=== PATIENT | male | born 1945 | race Caucasian/White ===

== ENCOUNTER 2018-04-07 11:06 | Inpatient (IN) | payer OTHER, BC ==
[~2018-04-07] VITALS: Ht 175.3 cm; Wt 102.5 kg
--- NOTE | ~2018-04-07 | HC ---
[facility] [place] [address] CONSULTATION Name: LUIS NDIAYE V [facility]: [facility] M.R.#: [id number] Admission: 04/07/18 Attend Phys: Kash Chan MD Discharge: Date of : 47 Report #: [id number] THIS REPORT FOR: //name// CC: Kash López DATE OF SERVICE: 04/10/2018 ATTENDING PHYSICIAN: Dr. Chan. REASON FOR EVALUATION: Empyema, left chest. HISTORY OF PRESENT ILLNESS: Chart reviewed, patient examined. This is a 73-year-old with extensive medical history, has underlying COPD, history of prostate cancer who developed pain, discomfort on the left side. He was eventually evaluated, was felt to have respiratory tract infection, had adverse drug effects relating to the antibiotics with emesis. Had a chest x-ray, which suggested pneumonitis in the left side and developed an effusion that was attempted. Diagnostic thoracentesis was unsuccessful, so did undergo left thoracotomy and decortication of the left lower lung. Cultures in progress thus far has been no growth. Empirically started on broad spectrum therapy with vancomycin, piperacillin and tazobactam. He does have chest tubes in place. He describes moderate pain at this point. ALLERGIES: None known. MEDICATIONS: Vancomycin, metoprolol, p.r.n. antiemetics, Zosyn, clonidine, ipratropium and albuterol inhaler, budesonide, sliding scale insulin. PAST MEDICAL HISTORY: Includes the above noted COPD, hypertension, prostate cancer. SOCIAL HISTORY: Former smoker. FAMILY HISTORY: Noncontributory. REVIEW OF SYSTEMS: As above. PHYSICAL EXAMINATION: GENERAL: He appears tenuous. He is generally lucid, moderate distress. He is sitting up in the chair, chronically ill appearing, somewhat undernourished. VITAL SIGNS: Temperature 98.8, pulse 67, respirations 18, blood pressure 113/57. SKIN: Warm, dry. HEENT: Nasal cannula oxygen in place. NECK: Supple. [facility] [address] [place] [address] CONSULTATION Name: LUIS NDIAYE V Room #: [address] [place] [address] [place] ..#: [id number] Admission: 04/07/18 Attend Phys: Kash Chan MD Discharge: Date of : 47 Report #: [id number] LUNGS: Diminished breath sounds on the left side, got chest tube in place. He is tender. HEART: Regular. I do not appreciate murmur. ABDOMEN: Soft. There are no peritoneal signs. GENITOURINARY: Deferred. RECTAL: Deferred. LABORATORY DATA: His recent chest x-ray showed small pneumothorax, left basilar infiltrate and atelectasis. Electrolytes: Sodium 138, potassium 4.7, chloride 105, bicarbonate is 27, BUN and creatinine 39 and 1.2, glucose of 110. LFTs unremarkable. Albumin 1.8, total protein 5.8. CBC: White count of 8.7, H and H 10.8 and 28.9, platelets of 443. Blood cultures are sterile thus far. Pleural fluid showed rare WBC, many RBCs, no organisms seen. Cultures are unrevealing. ASSESSMENT: Empyema post-thoracotomy with decortication. We will continue empiric broad spectrum therapy. Await culture results, may well have a situation where nothing grows given the previous antibiotics. Responds clinically. Noted plans to keep the chest tubes at least 1 additional day with increased activity expectantly. <ELECTRONICALLY SIGNED> By: Newton Benson MD 04/11/18 0750 0702 1328 Newton Benson MD /nt
[2018-04-07] MEDS ORDERED: ETODOLAC500 MG PO (15:00)
[2018-04-07] MEDS ORDERED: CLONIDINE0.1 PO (15:00)
[2018-04-07] MEDS ORDERED: ATENOLOL 100MG100 MG PO (15:00)
[2018-04-07] MEDS ORDERED: NEURONTIN 300300 M1 PO (15:01)
[2018-04-07] MEDS ORDERED: COZAAR 50 MG TA50 M2 PO (15:01)
[2018-04-07] MEDS ORDERED: HYDROCODONE-AP1 EAC6 PO (15:01)
[2018-04-07 16:25] VITALS: BP 128/61
[2018-04-07 19:45] VITALS: BP 126/55
[2018-04-07 20:11] LABS: HEMATOCRIT 30.4 % (42.0-52.0); HEMOGLOBIN 9.9 gm/dL (14.0-18.0); MCH 29.4 pg (26.0-34.0); MCHC 32.6 g/dL (28.0-37.0); MCV 90.1 fL (80.0-100.0); PLATELET COUNT 490 thou/uL (150-400); RBC 3.37 mil/uL (4.50-6.00); RDW 13.5 % (10.5-14.5); WBC 15.4 thou/uL (4.0-11.0)
[2018-04-07 20:19] LABS: CALCIUM 9.2 mg/dL (8.5-10.1); CREATININE 1.8 mg/dL (0.7-1.3); POTASSIUM 4.6 mmol/L (3.5-5.1)
[2018-04-07 20:24] LABS: ALBUMIN 2.1 g/dL (3.4-5.0); TOTAL BILIRUBIN 0.6 mg/dL (<0.1-1.0)
[2018-04-07 20:26] LABS: APTT 26.6 Seconds (24.5-32.8); PROTIME 9.9 Seconds (9.3-11.4)
[2018-04-07 20:45] LABS: BE(vivo) 1.2 mmol/L (-2 to +3); HCO3 25.3 mmol/L (22.0-26.0); PO2 67.7 mmHg (80.0-100.0); pH 7.441 (7.360-7.450); sO2 94.2 % (92.0-98.0)
[2018-04-07 20:58] LABS: ABSOLUTE NEUTROPHILS 13.9 thou/uL (1.4-8.2); METAMYELOCYTES 1 %; POLYCHROMASIA 1+
[2018-04-07 21:31] LABS: URINE BILIRUBIN NEGATIVE (Negative); URINE BLOOD NEGATIVE (Negative); URINE CLARITY CLEAR; URINE COLOR YELLOW; URINE GLUCOSE-RANDOM* NEGATIVE (Negative); URINE KETONES NEGATIVE (Negative); URINE LEUKOCYTES-REFLEX NEGATIVE (Negative); URINE NITRITE-REFLEX NEGATIVE (Negative); URINE PROTEIN (DIPSTICK) NEGATIVE (Negative); URINE SPECIFIC GRAVITY 1.015 (1.005-1.035); URINE UROBILINOGEN 0.2 E.U./dl (0.2-1.0)
[2018-04-07 23:48] VITALS: BP 123/60
[2018-04-08 00:08] VITALS: BP 123/60
[2018-04-08 04:00] LABS: CREATININE 1.5 mg/dL (0.7-1.3); MAGNESIUM 2.7 mg/dL (1.8-2.4); POTASSIUM 4.6 mmol/L (3.5-5.1); TOTAL BILIRUBIN 0.6 mg/dL (<0.1-1.0); TOTAL PROTEIN 6.5 g/dL (6.4-8.2)
[2018-04-08 04:19] LABS: ABSOLUTE NEUTROPHILS 11.3 thou/uL (1.4-8.2); BASOPHILS 0.1 % (0.0-2.0); HEMATOCRIT 27.9 % (42.0-52.0); HEMOGLOBIN 9.3 gm/dL (14.0-18.0); LYMPHOCYTES 3.4 % (24.0-44.0); MCH 30.3 pg (26.0-34.0); MCHC 33.4 g/dL (28.0-37.0); MCV 90.7 fL (80.0-100.0); MONOCYTES 6.6 % (1.0-8.0); PLATELET COUNT 465 thou/uL (150-400); POLYS 89.9 % (36.0-66.0); RBC 3.07 mil/uL (4.50-6.00); RDW 13.3 % (10.5-14.5); WBC 12.6 thou/uL (4.0-11.0)
[2018-04-08 04:32] VITALS: BP 131/64
[2018-04-08 08:19] VITALS: BP 132/55
[2018-04-08 15:39] LABS: CALCIUM 8.6 mg/dL (8.5-10.1); CREATININE 1.4 mg/dL (0.7-1.3); MAGNESIUM 2.5 mg/dL (1.8-2.4); POTASSIUM 5.1 mmol/L (3.5-5.1)
[2018-04-09 10:52] LABS: HEMATOCRIT 28.9 % (42.0-52.0); HEMOGLOBIN 9.8 gm/dL (14.0-18.0); MCH 30.4 pg (26.0-34.0); MCV 89.4 fL (80.0-100.0); RBC 3.23 mil/uL (4.50-6.00); RDW 13.3 % (10.5-14.5); WBC 8.7 thou/uL (4.0-11.0)
[2018-04-09 11:12] LABS: ALBUMIN 1.8 g/dL (3.4-5.0); CALCIUM 8.6 mg/dL (8.5-10.1); CREATININE 1.2 mg/dL (0.7-1.3); MAGNESIUM 2.4 mg/dL (1.8-2.4); POTASSIUM 4.7 mmol/L (3.5-5.1); TOTAL BILIRUBIN 0.5 mg/dL (<0.1-1.0); TOTAL PROTEIN 5.8 g/dL (6.4-8.2)
[2018-04-09 16:04] VITALS: BP 100/63
[2018-04-09 17:13] VITALS: BP 98/53
[2018-04-09 18:34] VITALS: BP 95/52
[2018-04-09 23:51] VITALS: BP 119/55
[2018-04-10 03:59] VITALS: BP 113/57
[2018-04-10 08:15] VITALS: BP 105/49
[2018-04-10 12:30] VITALS: BP 118/54
[2018-04-10 16:07] LABS: ALBUMIN 1.8 g/dL (3.4-5.0); CALCIUM 8.4 mg/dL (8.5-10.1); CREATININE 1.1 mg/dL (0.7-1.3); POTASSIUM 4.4 mmol/L (3.5-5.1); TOTAL BILIRUBIN 0.5 mg/dL (<0.1-1.0); TOTAL PROTEIN 5.8 g/dL (6.4-8.2)
[2018-04-10 17:23] VITALS: BP 121/56
[2018-04-10 17:25] VITALS: BP 121/56
[2018-04-10 19:50] VITALS: BP 134/58
[2018-04-11 04:27] VITALS: BP 126/53
[2018-04-11 04:29] LABS: HEMATOCRIT 27.3 % (42.0-52.0); HEMOGLOBIN 9.1 gm/dL (14.0-18.0); MCH 29.8 pg (26.0-34.0); MCHC 33.3 g/dL (28.0-37.0); MCV 89.4 fL (80.0-100.0); RBC 3.05 mil/uL (4.50-6.00); RDW 13.3 % (10.5-14.5); WBC 11.9 thou/uL (4.0-11.0)
[2018-04-11 04:40] LABS: CALCIUM 8.4 mg/dL (8.5-10.1); CREATININE 0.9 mg/dL (0.7-1.3); POTASSIUM 4.3 mmol/L (3.5-5.1)
[2018-04-11 08:14] VITALS: BP 120/52
[2018-04-11 11:57] LABS: ALBUMIN 1.9 g/dL (3.4-5.0); DIRECT BILIRUBIN 0.3 mg/dL (<0.1-0.3); TOTAL BILIRUBIN 0.7 mg/dL (<0.1-1.0); TOTAL PROTEIN 5.8 g/dL (6.4-8.2)
[2018-04-11 12:38] VITALS: BP 138/73
[2018-04-11 15:54] VITALS: BP 143/59
[2018-04-11 19:11] VITALS: BP 133/61
[2018-04-12 04:16] VITALS: BP 133/66
[2018-04-12 08:05] VITALS: BP 145/52
[2018-04-12 11:25] LABS: HEMATOCRIT 24.3 % (42.0-52.0); HEMOGLOBIN 8.1 gm/dL (14.0-18.0); MCH 30.1 pg (26.0-34.0); MCHC 33.5 g/dL (28.0-37.0); MCV 89.8 fL (80.0-100.0); RBC 2.7 mil/uL (4.50-6.00); RDW 13.2 % (10.5-14.5); WBC 11.9 thou/uL (4.0-11.0)
[2018-04-12 11:38] LABS: ALBUMIN 1.9 g/dL (3.4-5.0); CALCIUM 8.5 mg/dL (8.5-10.1); CREATININE 0.8 mg/dL (0.7-1.3); MAGNESIUM 1.8 mg/dL (1.8-2.4); TOTAL BILIRUBIN 0.6 mg/dL (<0.1-1.0)
[2018-04-12 11:40] VITALS: BP 130/55
[2018-04-12 15:47] VITALS: BP 148/63
[2018-04-12 19:45] VITALS: BP 158/65
[2018-04-13 04:12] LABS: CALCIUM 8.3 mg/dL (8.5-10.1); CREATININE 0.8 mg/dL (0.7-1.3); MAGNESIUM 1.7 mg/dL (1.8-2.4); POTASSIUM 3.9 mmol/L (3.5-5.1)
[2018-04-13 04:23] VITALS: BP 136/74
[2018-04-13 04:27] LABS: HEMATOCRIT 24.2 % (42.0-52.0); HEMOGLOBIN 8.2 gm/dL (14.0-18.0); MCH 30.3 pg (26.0-34.0); MCHC 34.1 g/dL (28.0-37.0); MCV 88.8 fL (80.0-100.0); RBC 2.72 mil/uL (4.50-6.00); RDW 13.2 % (10.5-14.5); WBC 10.7 thou/uL (4.0-11.0)
[2018-04-13 07:50] VITALS: BP 127/57
[2018-04-13 12:39] VITALS: BP 143/61
[2018-04-13 16:04] VITALS: BP 154/71
[2018-04-13 19:45] VITALS: BP 149/70
[2018-04-14 03:01] LABS: HEMATOCRIT 25.1 % (42.0-52.0); HEMOGLOBIN 8.4 gm/dL (14.0-18.0); MCH 29.9 pg (26.0-34.0); MCHC 33.5 g/dL (28.0-37.0); MCV 89.3 fL (80.0-100.0); RBC 2.81 mil/uL (4.50-6.00); RDW 13.1 % (10.5-14.5); WBC 11.3 thou/uL (4.0-11.0)
[2018-04-14 03:19] LABS: CALCIUM 8.8 mg/dL (8.5-10.1); CREATININE 0.8 mg/dL (0.7-1.3); MAGNESIUM 1.7 mg/dL (1.8-2.4); POTASSIUM 3.9 mmol/L (3.5-5.1)
[2018-04-14 04:37] VITALS: BP 153/68
[2018-04-14 07:44] VITALS: BP 155/72
[2018-04-14] MEDS ORDERED: DUONEB 2.5-0.5 M3 ML INH (14:29)
[2018-04-14] MEDS ORDERED: PULMICORT0.5 MG/21 INH (14:29)
[2018-04-14] MEDS ORDERED: LOPRESSOR25 PO (14:29)
[2018-04-14] MEDS ORDERED: MUCINEX600 MG PO (14:30)
== END 2018-04-14 15:30 | DRG 853 ==
LOC: 2N 11:06 → TBA 04-08 12:00 → ICU 04-08 16:49 → 2N 04-09 18:26 → ENTRNSPT 04-14 15:11 → EDTRNSPTSTS 04-14 15:13 → 2N 04-14 15:30
PROVIDERS: Internal Medicine; Internal Medicine Pulmonary Disease; Nurse Practitioner; Thoracic Surgery (Cardiothoracic Vascular Surgery)
PROC: 0BNJ0ZZ Release Left Lower Lung Lobe, Open Approach (ICD-10-PCS; principal; 2018-04-08)
DX: A41.9 Sepsis, unspecified organism (principal); J18.9 Pneumonia, unspecified organism; E43 Unspecified severe protein-calorie malnutrition; J86.9 Pyothorax without fistula; J96.01 Acute respiratory failure with hypoxia; N17.9 Acute kidney failure, unspecified; J90 Pleural effusion, not elsewhere classified; E87.2 Acidosis; J44.9 Chronic obstructive pulmonary disease, unspecified; I25.10 Atherosclerotic heart disease of native coronary artery without angina pectoris; R73.9 Hyperglycemia, unspecified; N18.3 Chronic kidney disease, stage 3 (moderate); K80.20 Calculus of gallbladder without cholecystitis without obstruction; B95.4 Other streptococcus as the cause of diseases classified elsewhere; D64.9 Anemia, unspecified; I12.9 Hypertensive chronic kidney disease with stage 1 through stage 4 chronic kidney disease, or unspecified chronic kidney disease; D69.6 Thrombocytopenia, unspecified; Z85.46 Personal history of malignant neoplasm of prostate; Z68.33 Body mass index [BMI] 33.0-33.9, adult; Z87.891 Personal history of nicotine dependence; Z92.3 Personal history of irradiation; Z79.51 Long term (current) use of inhaled steroids; Z79.899 Other long term (current) drug therapy; Z83.3 Family history of diabetes mellitus
CPT/HCPCS: 10078; 10081; 10797; 47405; 50010; 50101; 50386; 50417; 50455; 50497; 51301; 51717; 56524; 56525; 56526; 56527; 56528; 62110; 62900; 65020; 65040; 65105; 65129; 70005

== ENCOUNTER 2018-04-14 11:27 | Inpatient (IN) | payer OTHER, BC ==
[~2018-04-14] VITALS: Ht 175.3 cm; Wt 95.5 kg
--- NOTE | ~2018-04-14 | PLAN ---
[facility] [place] [address] REHAB UNIT PLAN OF CARE Name: LUIS NDIAYE V Room #: 510-P [facility] IN M.R.#: [id number] Admission: 04/14/18 Attend Phys: Raúl Tomlinson MD Discharge: 04/22/18 Date of : 47 Report #: [id number] THIS REPORT FOR: //name// CC: Jorge Tomlinson DATE OF SERVICE: 04/16/2018 PROGRESS/OVERALL PLAN OF CARE The patient is seen back today in followup. He is in no distress. Last recorded temperature 97.4, pulse 95, respirations 18, blood pressure 133/79. No focal calf swelling. He does have some blistered areas of his foot dorsum. There is no calf swelling. There is no erythema at the base of the blisters. Lower extremity edema appears improved. Functionally, he is transferring with min assist and gait is min assist 150 feet with a front-wheeled walker. In occupational therapy, lower body dressing is max assist. ASSESSMENT: 1. Medical complexity with generalized debilitation. 2. Empyema, status post thoracotomy with decortication of the left lower lobe on 04/08/2018. 3. Acute respiratory failure with a community-acquired pneumonia. 4. Acute renal failure, resolved. 5. Anemia. 6. Chronic obstructive pulmonary disease. PLAN: The overall plan of care is based on the preadmission screen, post-admission physician evaluation and information garnered from therapy assessments. 1. Estimated length of stay is around 1-2 weeks pending progress. 2. Medical prognosis is reasonably good. 3. Anticipated interventions includes the interdisciplinary acute inpatient rehabilitation program with goal of maximizing the patient's functional independence, so that he can hopefully return back to his prior living situation. PT, OT, rehab nursing to assist regarding medication management, skin care prophylaxis, bowel and bladder issues and nursing education. Case management is involved as well as the rest of the interdisciplinary acute rehabilitation team and the institutional nutrition consultant physicians. 4. Anticipated functional outcomes would be for the patient to become modified independent with transfers, mobility and ADLs, so that he can hopefully return back to his prior living situation. Goal would to be independent at least at the walker level. 5. Discharge destination is back to the home setting where the patient lives with his . 6. Expected therapy by discipline includes PT and OT 1 and 1-1/2 hours per day, [place] [address] REHAB UNIT PLAN OF CARE Name: LUIS NDIAYE Roc Room #: 510-P [facility] IN ..#: [id number] Admission: 04/14/18 Attend Phys: Raúl Tomlinson MD Discharge: 04/22/18 Date of : 47 Report #: [id number] each five days a week throughout the duration of the acute inpatient rehabilitation stay. <ELECTRONICALLY SIGNED> By: Raúl Tomlinson MD 04/30/18 1515 0750 0830 Raúl Tomlinson MD /ELKE
--- NOTE | ~2018-04-14 | H ---
[facility] [place] [address] HISTORY AND PHYSICAL Name: LUIS NDIAYE V Room #: 510-P [facility] IN .R.#: [id number] Admission: 04/14/18 Attend Phys: Raúl Tomlinson MD Discharge: 04/22/18 Date of : 47 Report #: [id number] THIS REPORT FOR: //name// CC: Jorge Tomlinson DATE OF SERVICE: 04/14/2018 HISTORY OF PRESENT ILLNESS: This is a pleasant 73-year-old gentleman who has now been admitted to inpatient rehabilitation after a hospital stay for large empyema and ultimately underwent thoracotomy with decortication of the left lower lobe. On 04/08/2018, he was seen by Cardiothoracic Surgery, Pulmonology and Infectious Disease. He remains on antibiotics. He continues with dressing changes to the left chest wall. Due to his weakness and deconditioning, he has been admitted to inpatient rehab for further strengthening therapies and to improve his functional mobility. Today, he reports good pain control. He does have some increasing edema in his lower extremities for which he now has blisters on both tops of his feet. He has some shortness of air with activity and a productive cough at times. His appetite is slowly improving. He is sleeping better and he is having regular bowel movement. PAST MEDICAL HISTORY: Prostate cancer, stage I; hypertension; COPD. HABITS: He quit smoking 4 years ago. He drinks beer in the evening at times. Denies illicit drug use. SOCIAL HISTORY: He is a full code. He lives in a 1 story home with his . There is 1 entry stair, zero stairs inside. He utilized no assistive device premorbidly. He still drives. 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 ALLERGIES: No known drug allergies. CURRENT MEDICATIONS: Lactobacillus 1 capsule daily, Lasix 40 mg daily IV, losartan 50 mg daily by mouth, DuoNeb as needed, ampicillin 3 grams every 8 hours IV, metoprolol 25 mg twice a day by mouth, gabapentin 300 mg twice a day by mouth, clonidine 0.1 mg twice a day by mouth, budesonide 0.5 mg b.i.d., inhaled DuoNeb q.6h. scheduled, Zofran 4 mg q.6h. IV p.r.n., Axtell 5/325 q.4h. by mouth p.r.n., senna 1 tablet daily by mouth p.r.n., milk of mag 10 mL daily by mouth p.r.n., Colace 100 mg twice a day by mouth p.r.n., bisacodyl 10 mg rectally daily p.r.n. REVIEW OF SYSTEMS: Remainder of his 12-point review of systems is negative except as listed in HPI. [address] [address] HISTORY AND PHYSICAL Name: LUIS NDIAYE V Room #: 510-P [facility] IN M.R.#: [id number] Admission: 04/14/18 Attend Phys: Raúl Tomlinson MD Discharge: 04/22/18 Date of : 46 Report #: [id number] PHYSICAL EXAMINATION: VITAL SIGNS: Blood pressure 122/71, pulse 79, temperature 97.9, respirations 20. GENERAL: He is awake. He is alert. He is oriented x 4. He appears in no acute distress. HEENT: Normocephalic. EOMs are intact. CHEST: Lungs are diminished in the left lower lobe, otherwise clear. No crackle, no wheeze. CARDIAC: Regular rate and rhythm, S1, S2. ABDOMEN: Bowel sounds are positive, soft, nontender, nondistended. GENITOURINARY: Deferred. EXTREMITIES: 2+ lower extremity edema from knees down to toes. He has 2-3 large fluid-filled blisters on the dorsal portion of the foot. No tenderness. Negative Homans sign. Functional range of motion intact bilateral upper and lower extremities. Strength grossly 4/5. NEUROLOGIC: Cranial nerves 2-12 grossly intact. No motor or sensory deficits. MUSCULOSKELETAL: He is contact guard assist for sit to stand. He is ambulating up to 280 feet with a front-wheel walker, supervision for toilet transfers, supervision for grooming. He is max assist for dressing in the lower extremities. SKIN: He has surgical incision to posterior chest, clean, dry and intact and as mentioned above, blisters to his feet. LABORATORY DATA: On 04/15/2018, sodium 138, potassium 3.8, BUN 8, creatinine 0.8, glucose 109, calcium 8.4, mag 1.7. WBC 7.7, hemoglobin 8, hematocrit 23.3, platelets 502. ASSESSMENT: 1. Medical complexity with general debilitation. 2. Empyema, status post thoracotomy with decortication of left lower lobe on 04/08/2018. 3. Acute respiratory failure and community-acquired pneumonia. 4. Acute renal failure, resolved. 5. Anemia. 6. Chronic obstructive pulmonary disease. 7. Hypomagnesemia. 8. Hypertension. 9. Elevated liver function tests, possible liver stress or sludge has improved. PLAN: The patient has been admitted to inpatient rehab for physical and occupational therapies to increase his functional mobility with a goal to return back to the home setting with his . He will continue to have the [address] [place] [address] HISTORY AND PHYSICAL Name: LUIS NDIAYE V Room #: 510-P [facility] IN M.R.#: [id number] Admission: 04/14/18 Attend Phys: Raúl Tomlinson MD Discharge: 04/22/18 Date of : 46 Report #: [id number] consultants follow for any acute issues that may arise. He will have a team conference on Thursday for future discharge planning. <ELECTRONICALLY SIGNED> By: TRACEY Melissa 04/29/18 1406 1013 1101 TRACEY Melissa /nt
--- NOTE | ~2018-04-14 | H ---
[facility] [address] HISTORY AND PHYSICAL Name: LUIS NDIAYE V Room #: 510-P [facility] IN M.R.#: [id number] Admission: 04/14/18 Attend Phys: Raúl Tomlinson MD Discharge: 04/22/18 Date of : 47 Report #: [id number] THIS REPORT FOR: //name// CC: Jorge Tomlinson DATE OF SERVICE: 04/14/2018 HISTORY AND PHYSICAL, ADDENDUM/POST-ADMISSION PHYSICIAN EVALUATION HISTORY OF PRESENT ILLNESS: The patient is a 73-year-old white male, now admitted for acute in-hospital inpatient rehabilitation. Please see the dictation from Radha Barnett, nurse practitioner. He originally was admitted to [facility] on 04/07/2018 with shortness of breath, cough, and edema. He was seen by Cardiothoracic Surgery for pleural effusion, loculation, and underwent thoracotomy with decortication of the left lower lobe. He was followed by multiple [facility] consultant physicians with Pulmonary Medicine involved, Infectious Disease, dressing changes to the left chest wall. He has some increasing edema of his lower extremities. He has been admitted now for acute in-hospital inpatient rehabilitation. PAST MEDICAL HISTORY: Please see the above-noted dictation. HABITS: Please see the above-noted dictation. SOCIAL HISTORY: Please see the above-noted dictation. ALLERGIES: Please see the above-noted dictation. MEDICATIONS: Please see the above-noted dictation. REVIEW OF SYSTEMS: Please see the above-noted dictation. PHYSICAL EXAMINATION: GENERAL: He was seen earlier. He was alert, no obvious distress. VITAL SIGNS: Afebrile. Vital signs were stable. CHEST: Some decreased breath sounds over the left lower lobe. CARDIOVASCULAR: Regular rate and rhythm. ABDOMEN: Bowel sounds positive, nontender. EXTREMITIES: He does have 2+ lower extremity edema. There are some blisters noted on the dorsal portion of the foot. His strength is a grade 4-/5. Functionally, he has been needing contact guard for sit to stand and is ambulating short distances with a front-wheeled walker. ASSESSMENT: 1. Medical complexity with generalized debilitation. [facility] [address] [place] [address] HISTORY AND PHYSICAL Name: LUIS NDIAYE V Room #: 510-P [facility] IN M.R.#: [id number] Admission: 04/14/18 Attend Phys: Raúl Tomlinson MD Discharge: 04/22/18 Date of : 47 Report #: [id number] 2. Empyema status post thoracotomy with decortication of the left lower lobe on 04/08/2018. 3. Acute respiratory failure with community-acquired pneumonia. 4. Acute renal failure, resolved. 5. Anemia. 6. Chronic obstructive pulmonary disease. Otherwise, see the problem list as per the noted dictation. PLAN: The patient is involved and has been admitted for acute in-hospital inpatient rehabilitation. From a postadmission physician evaluation perspective, there are no relevant changes since the preadmission screening. Please see the above review of prior and current medical and functional conditions and comorbidities. Please see the patient's previous and current functional status. As far as risk of complications, the patient has multiple medical comorbidities as noted above. The initial plan of care involves the interdisciplinary acute inpatient rehabilitation program with goal of maximizing the patient's functional independence so that he can hopefully return back to his prior living situation. Measurable functional goals would be for the patient to become modified independent with transfers, mobility and ADLs so that he can return back to the home setting. Prognosis is reasonably good with estimated length of stay probably at least 10 days to 2 weeks pending progress. Potential barriers would include his multiple medical comorbidities and decreased functional status. The patient meets diagnostic criteria for an acute in-hospital inpatient rehabilitation stay. He does meet the medical necessity criteria. The hospitalist service has been contacted regarding the lower extremity edema and blistering and will defer further input as per them. No consideration for increasing diuresis. The patient does have the tolerance for an acute in-hospital inpatient rehabilitation therapy program and has appropriate discharge goals back to the home setting. ADDENDUM: From a review of systems perspective, there was no chest pain, no obvious shortness of breath, no abdominal discomfort. <ELECTRONICALLY SIGNED> By: Raúl Tomlinson MD 04/30/18 1513 1240 1310 Raúl Tomlinson MD /nt
--- NOTE | ~2018-04-14 | HC ---
[facility] [place] [address] CONSULTATION Name: LUIS NDIAYE V Room #: 510-P [facility] IN M.R.#: [id number] Admission: 04/14/18 Attend Phys: aRúl Tomlinson MD Discharge: Date of : 47 Report #: [id number] THIS REPORT FOR: //name// CC: Jorge Tomlinson DATE OF SERVICE: 04/17/2018 ATTENDING PHYSICIAN: Raúl Tomlinson MD. ORDER DEPARTMENT SUPERVISOR: William Downey, PhD. CLINICAL PRESENTATION: The patient is a 73-year-old male admitted to the Rehab Unit at [facility] for comprehensive inpatient rehabilitation program to improve functional mobility, activities of daily living and self-care and mental status secondary to deficits from medical complexity and general debility. The patient came in to the hospital after experiencing severe pain on the left side of his body. He had several days of unexplained bloody cough and general malaise and had several attempts at medical evaluations to identify the problem. Eventually, his condition deteriorated to the extent of requiring hospitalization. He was diagnosed with a large empyema and underwent a thoracotomy with decortication of the left lower lobe. His diagnoses include acute respiratory failure and community-acquired pneumonia; acute renal failure, resolved; anemia; COPD; hypomagnesemia; hypertension; and elevated liver function test. A complete description of his medical condition and history can be found in his medical record. Neuropsychological consultation was requested to provide assistance in the assessment of cognitive and emotional status and to provide recommendations and services. Prior to this most recent admission and deterioration in his condition, he was living independently with his in their home. The patient has an 11th grade education and his employment was at a [employer] company for about 33 years. 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 He has one child and 6 grandchildren. There is no prior history of treatment for anxiety or depression. The patient does have daily use of alcohol at approximately 2-3 cans daily. No prior incidence of DUI, loss of consciousness from drinking or concern about alcohol abuse is described. TECHNIQUES UTILIZED: Clinical interview, review of medical records, staff consultation and behavioral observation, mini mental status exam 2 standard version and clock drawing. EXAMINATION FINDINGS: The patient was alert and cooperative with the assessment. He accurately described events surrounding his admission. There [address] [address] CONSULTATION Name: LUIS NDIAYE V Room #: 510-P [facility] IN M.R.#: [id number] Admission: 04/14/18 Attend Phys: Raúl Tomlinson MD Discharge: Date of : 46 Report #: [id number] is no evidence of aphasia or report of auditory or visual hallucinations. He does not report subjective anxiety or depression and indicates feeling optimistic and positive about his overall condition and recovery. He denies difficulty with sleep, appetite, or memory. His performance on the MMSE 2 brief version is within normal limits with a raw score of 14/16. He was 3/3 for initial registration, 5/5 for time, 4/[address] and 2/3 for immediate recall of 3 items after a brief time delay and distraction. His performance on the MMSE 2 standard version is within normal limits with a raw score of 28/30. He was 5/5 for serial 7's. Naming, repetition, comprehension, reading, writing and copying a simple geometric design are all within normal limits. Clock drawing was within normal limits. DIAGNOSTIC IMPRESSION: The patient's cognitive ability appears well maintained at this time. An assessment for mild neurocognitive disorder was indicated given his issues of respitory distress. He reports that his mood is optimistic and positive, however, mild anxiety is suggested. RECOMMENDATIONS: Continued involvement in his physical therapy program will improve overall adjustment and feelings of well-being and self-confidence as his endurance improves. A mild degree of anxiety in regard to the interference of his medical condition with ability to pursue work and recreation is suggested. Thank you very much for allowing me to provide the consultation on this patient. <ELECTRONICALLY SIGNED> By: William Downey, PhD 04/18/18 1441 1543 2058 William Downey, PhD /nt
[~2018-04-14 11:27] MED LIST: ATENOLOL 100MG100 MG PO; CLONIDINE0.1 PO; COZAAR 50 MG TA50 M2 PO; ETODOLAC500 MG PO; HYDROCODONE-AP1 EAC6 PO; NEURONTIN 300300 M1 PO
[2018-04-14] MEDS ORDERED: LOPRESSOR25 PO (14:29)
[2018-04-14] MEDS ORDERED: PULMICORT0.5 MG/21 INH (14:29)
[2018-04-14] MEDS ORDERED: DUONEB 2.5-0.5 M3 ML INH (14:29)
[2018-04-14] MEDS ORDERED: MUCINEX600 MG PO (14:30)
[2018-04-14 15:40] VITALS: BP 151/61
[2018-04-14 19:05] VITALS: BP 151/64
[2018-04-15 07:03] LABS: HEMATOCRIT 23.3 % (42.0-52.0); MCH 30.2 pg (26.0-34.0); MCHC 34.4 g/dL (28.0-37.0); MCV 87.8 fL (80.0-100.0); RBC 2.66 mil/uL (4.50-6.00); RDW 13.3 % (10.5-14.5); WBC 7.7 thou/uL (4.0-11.0)
[2018-04-15 07:13] LABS: CALCIUM 8.4 mg/dL (8.5-10.1); CREATININE 0.8 mg/dL (0.7-1.3); MAGNESIUM 1.7 mg/dL (1.8-2.4); POTASSIUM 3.8 mmol/L (3.5-5.1)
[2018-04-15 08:00] VITALS: BP 122/71
[2018-04-15 19:53] VITALS: BP 133/79
[2018-04-16 07:40] VITALS: BP 123/62
[2018-04-16 20:08] VITALS: BP 130/63
[2018-04-17 20:05] VITALS: BP 137/65
[2018-04-18 09:42] VITALS: BP 133/63
[2018-04-18 20:16] VITALS: BP 138/62
[2018-04-19 03:54] LABS: CALCIUM 8.4 mg/dL (8.5-10.1); MAGNESIUM 1.8 mg/dL (1.8-2.4); POTASSIUM 3.7 mmol/L (3.5-5.1)
[2018-04-19 04:06] LABS: ABSOLUTE NEUTROPHILS 4.3 thou/uL (1.4-8.2); BASOPHILS 1.1 % (0.0-2.0); EOSINOPHILS 3.7 % (0.0-3.0); HEMATOCRIT 21.8 % (42.0-52.0); HEMOGLOBIN 7.4 gm/dL (14.0-18.0); LYMPHOCYTES 10.9 % (24.0-44.0); MCH 29.7 pg (26.0-34.0); MCHC 33.9 g/dL (28.0-37.0); MCV 87.7 fL (80.0-100.0); MONOCYTES 10.2 % (1.0-8.0); PLATELET COUNT 430 thou/uL (150-400); POLYS 74.1 % (36.0-66.0); RBC 2.49 mil/uL (4.50-6.00); RDW 13.5 % (10.5-14.5); WBC 5.8 thou/uL (4.0-11.0)
[2018-04-19 07:30] VITALS: BP 143/68
[2018-04-19 10:27] LABS: ALBUMIN 2.1 g/dL (3.4-5.0); DIRECT BILIRUBIN 0.1 mg/dL (<0.1-0.3); TOTAL BILIRUBIN 0.4 mg/dL (<0.1-1.0); TOTAL PROTEIN 6.3 g/dL (6.4-8.2)
[2018-04-19 19:20] VITALS: BP 135/66
[2018-04-20 08:00] VITALS: BP 130/55
[2018-04-20 20:55] VITALS: BP 130/56
[2018-04-21 08:00] VITALS: BP 125/64
[2018-04-21] MEDS ORDERED: NEBULIZER MISCELL (15:12)
[2018-04-21] MEDS ORDERED: ACIDOPHILUS1 EAC4 PO (15:12)
[2018-04-21] MEDS ORDERED: EAR DROPS15 ML OTIC (15:12)
[2018-04-21] MEDS ORDERED: IRON325 PO (15:12)
[2018-04-21] MEDS ORDERED: VITAMIN D1000 UNI1 PO (15:12)
[2018-04-21] MEDS ORDERED: MUCINEX600 MG PO (15:12)
[2018-04-21] MEDS ORDERED: DUONEB 2.5-0.5 M3 ML INH (15:12)
[2018-04-21] MEDS ORDERED: ZEASORB71 GM TOP (15:12)
[2018-04-21] MEDS ORDERED: LASIX 40 MG TAB40 M2 PO (15:12)
[2018-04-21 15:27] VITALS: BP 125/64
[2018-04-21 20:15] VITALS: BP 135/58
[2018-04-22 07:55] VITALS: BP 128/61
[2018-04-22] MEDS ORDERED: AMOXIL 875 MG875 M2 PO (08:48)
[2018-04-22 09:56] VITALS: BP 125/64
== END 2018-04-22 13:05 | disposition home health service (06) | DRG 947 ==
LOC: ENTRNSPT 04-22 12:42 → EDTRNSPTSTS 04-22 13:01
PROVIDERS: Nurse Practitioner; Physical Medicine & Rehabilitation
DX: R53.81 Other malaise (principal); J86.9 Pyothorax without fistula; J18.9 Pneumonia, unspecified organism; J96.01 Acute respiratory failure with hypoxia; A41.9 Sepsis, unspecified organism; J44.0 Chronic obstructive pulmonary disease with (acute) lower respiratory infection; N17.9 Acute kidney failure, unspecified; E46 Unspecified protein-calorie malnutrition; D62 Acute posthemorrhagic anemia; E83.42 Hypomagnesemia; N18.3 Chronic kidney disease, stage 3 (moderate); I12.9 Hypertensive chronic kidney disease with stage 1 through stage 4 chronic kidney disease, or unspecified chronic kidney disease; K80.20 Calculus of gallbladder without cholecystitis without obstruction; B95.4 Other streptococcus as the cause of diseases classified elsewhere; E55.9 Vitamin D deficiency, unspecified; S80.822A Blister (nonthermal), left lower leg, initial encounter; S80.821A Blister (nonthermal), right lower leg, initial encounter; X58.XXXA Exposure to other specified factors, initial encounter; Y93.89 Activity, other specified; Y92.89 Other specified places as the place of occurrence of the external cause; Y99.8 Other external cause status; Z68.31 Body mass index [BMI] 31.0-31.9, adult; Z87.891 Personal history of nicotine dependence; Z85.46 Personal history of malignant neoplasm of prostate; Z79.899 Other long term (current) drug therapy
CPT/HCPCS: 10112